=== PATIENT | female | born 1935 | race Caucasian/White ===

== ENCOUNTER → 2023-07-02 09:26 | Outpatient (REF) | payer MEDICARE, OTHER, SELFPAY ==
[2023-07-02 11:55] LABS: % Basophils 0.5 % (0-2); % Immature Granulocytes 0.4 % (0-0.5); % Lymphocytes 12.8 % (20.5-51.1); % Monocytes 8.4 % (1.7-9.3); % Neutrophils 74.9 % (42.2-75.2); Absolute Eosinophils 0.3 10^3/uL (0-0.7); Absolute Lymphocytes 1.1 10^3/uL (1.2-3.4); Absolute Monocytes 0.7 10^3/uL (0.1-0.6); Absolute Neutrophils 6.3 10^3/uL (1.4-6.5); Hematocrit 42.7 % (37.0-47.0); Hemoglobin 14.2 g/dL (12.0-16.0); Mean Corp Hgb Conc. 33.3 g/dL (33.0-37.0); Mean Corpuscular Hgb 29.3 pg (27.0-31.0); Mean Platelet Volume 10.4 fL (7.4-10.4); Nucleated Red Blood Cells % 0 %; Platelet Count 250 10^3/uL (130-400); Red Blood Cell Count 4.85 10^6/uL (4.20-5.40); Red Cell Dist. Width 15.9 % (11.5-14.5); White Blood Cell Count 8.4 10^3/uL (4.8-10.8)
[2023-07-02 12:03] LABS: ALT (SGPT) 16 U/L (0-35); AST (SGOT) 23 U/L (14-36); Alkaline Phosphatase 90 U/L (38-126); Blood Urea Nitrogen 31 mg/dl (7-17); Calcium 9.7 mg/dl (8.4-10.2); Carbon Dioxide 31 mmol/L (22-30); Chloride 97 mmol/L (98-107); Glucose 170 mg/dl (70-99); HDL Cholesterol 55 mg/dl; LDL Cholesterol, Calculated 45 mg/dl; Potassium 4.3 mmol/L (3.5-5.1); Sodium 135 mmol/L (135-145); Total Bilirubin 0.9 mg/dl (0.2-1.3); Total Cholesterol 131 mg/dl (50-199); Total Protein 6.7 g/dl (6.3-8.2); Triglyceride 159 mg/dl (10-149); Very Low Density Lipoprotein 31 mg/dl (0-30); eGFR > 60.00
[2023-07-02 12:32] LABS: Microalbumin, Random Urine 1.4 mg/dl (0.6-1.7); Microalbumin/creatinine Ratio 20.3 mg/g
[2023-07-02 12:47] LABS: TSH Reflex To Free T4 2.03 uIU/ml (0.47-4.68)
[2023-07-02 13:52] LABS: Glycohemoglobin (HgbA1c) 7.4 % (4.0-5.6)
== END ==
LOC: HWLAB 09:26
PROVIDERS: ATTENDING PHYSICIAN Nurse Practitioner Family
DX: I10 Essential (primary) hypertension (principal); E11.9 Type 2 diabetes mellitus without complications; E11.42 Type 2 diabetes mellitus with diabetic polyneuropathy; N18.32 Chronic kidney disease, stage 3b; E78.5 Hyperlipidemia, unspecified
CPT/HCPCS: 36415; 80053; 80061; 82043; 82570; 83036; 84443; 85025

== ENCOUNTER → 2023-07-13 09:43 | Outpatient (REF) | payer MEDICARE, OTHER, SELFPAY | LOC: HWRAD 09:43 | PROVIDERS: ATTENDING PHYSICIAN Nurse Practitioner Family | DX: R91.1 Solitary pulmonary nodule (principal) | CPT/HCPCS: 71260; Q9967 ==

== ENCOUNTER → 2023-11-15 10:20 | Outpatient (REF) | payer MEDICARE, OTHER, SELFPAY | LOC: HWRCS 10:20 | PROVIDERS: ATTENDING PHYSICIAN Internal Medicine Cardiovascular Disease; FAMILY PHYSICIAN Nurse Practitioner Family | DX: I35.0 Nonrheumatic aortic (valve) stenosis (principal) | CPT/HCPCS: 93306 ==

== ENCOUNTER → 2024-01-01 09:03 | Outpatient (REF) | payer MEDICARE, OTHER, SELFPAY ==
[2024-01-01 12:04] LABS: % Basophils 0.8 % (0-2); % Eosinophils 4.9 % (0-6); % Immature Granulocytes 0.5 % (0-0.5); % Lymphocytes 12.4 % (20.5-51.1); % Monocytes 9.4 % (1.7-9.3); Absolute Basophils 0.1 10^3/uL (0-0.2); Absolute Eosinophils 0.4 10^3/uL (0-0.7); Absolute Monocytes 0.8 10^3/uL (0.1-0.6); Absolute Neutrophils 5.7 10^3/uL (1.4-6.5); Hematocrit 42.6 % (37.0-47.0); Mean Corp Hgb Conc. 32.9 g/dL (33.0-37.0); Mean Corpuscular Hgb 27.8 pg (27.0-31.0); Mean Corpuscular Volume 84.5 fL (81.0-99.0); Mean Platelet Volume 10.2 fL (7.4-10.4); Nucleated Red Blood Cells % 0 %; Platelet Count 244 10^3/uL (130-400); Red Blood Cell Count 5.04 10^6/uL (4.20-5.40); Red Cell Dist. Width 15.9 % (11.5-14.5)
[2024-01-01 12:18] LABS: ALT (SGPT) 17 U/L (0-35); AST (SGOT) 22 U/L (14-36); Albumin 4.2 g/dl (3.5-5.0); Alkaline Phosphatase 88 U/L (38-126); Blood Urea Nitrogen 33 mg/dl (7-17); Calcium 9.9 mg/dl (8.4-10.2); Carbon Dioxide 28 mmol/L (22-30); Chloride 97 mmol/L (98-107); Glucose 188 mg/dl (70-99); HDL Cholesterol 56 mg/dl; LDL Cholesterol, Calculated 50 mg/dl; Potassium 4.2 mmol/L (3.5-5.1); Sodium 134 mmol/L (135-145); Total Bilirubin 0.8 mg/dl (0.2-1.3); Total Cholesterol 131 mg/dl (50-199); Total Protein 6.8 g/dl (6.3-8.2); Triglyceride 128 mg/dl (10-149); Very Low Density Lipoprotein 25 mg/dl (0-30); eGFR 54.53
[2024-01-01 12:39] LABS: Glycohemoglobin (HgbA1c) 8.1 % (4.0-5.6)
[2024-01-01 12:41] LABS: TSH Reflex To Free T4 1.63 uIU/ml (0.47-4.68)
[2024-01-01 16:28] LABS: Microalbumin, Random Urine 14.4 mg/dl (0.6-1.7); Microalbumin/creatinine Ratio 190.5 mg/g
== END ==
LOC: HWLAB 09:03
PROVIDERS: ATTENDING PHYSICIAN Nurse Practitioner Family; REFERRING PHYSICIAN Internal Medicine Cardiovascular Disease
DX: I10 Essential (primary) hypertension (principal); E11.9 Type 2 diabetes mellitus without complications; N18.32 Chronic kidney disease, stage 3b
CPT/HCPCS: 36415; 80053; 80061; 82043; 82570; 83036; 84443; 85025

== ENCOUNTER → 2024-01-03 11:48 | Outpatient (REF) | payer MEDICARE, OTHER, SELFPAY | LOC: HWRAD 11:48 | PROVIDERS: ATTENDING PHYSICIAN Nurse Practitioner Family | DX: R06.09 Other forms of dyspnea (principal); R91.8 Other nonspecific abnormal finding of lung field | CPT/HCPCS: 71046 ==

== ENCOUNTER → 2024-01-31 14:41 | Outpatient (REF) | payer MEDICARE, OTHER, SELFPAY | LOC: HWRAD 14:41 | PROVIDERS: ATTENDING PHYSICIAN Nurse Practitioner Family | DX: R91.1 Solitary pulmonary nodule (principal) | CPT/HCPCS: 71260; Q9967 ==

== ENCOUNTER → 2024-09-08 09:34 | Outpatient (REF) | payer MEDICARE, OTHER, SELFPAY ==
[2024-09-08 12:59] LABS: ALT (SGPT) 16 U/L (0-35); AST (SGOT) 20 U/L (14-36); Albumin 4.3 g/dl (3.5-5.0); Alkaline Phosphatase 92 U/L (38-126); Blood Urea Nitrogen 62 mg/dl (7-17); Calcium 9.6 mg/dl (8.4-10.2); Carbon Dioxide 29 mmol/L (22-30); Chloride 94 mmol/L (98-107); Glucose 251 mg/dl (70-99); HDL Cholesterol 44 mg/dl; LDL Cholesterol, Calculated 50 mg/dl; Potassium 4.1 mmol/L (3.5-5.1); Sodium 134 mmol/L (135-145); Total Bilirubin 0.9 mg/dl (0.2-1.3); Total Cholesterol 126 mg/dl (50-199); Total Protein 6.8 g/dl (6.3-8.2); Triglyceride 160 mg/dl (10-149); Very Low Density Lipoprotein 32 mg/dl (0-30); eGFR 36.19
[2024-09-08 13:14] LABS: TSH Reflex To Free T4 1.63 uIU/ml (0.47-4.68)
[2024-09-08 14:00] LABS: Glycohemoglobin (HgbA1c) 11.2 % (4.0-5.6)
== END ==
LOC: HWLAB 09:34
PROVIDERS: ATTENDING PHYSICIAN Internal Medicine Cardiovascular Disease; FAMILY PHYSICIAN Nurse Practitioner Family
DX: I10 Essential (primary) hypertension (principal); E11.9 Type 2 diabetes mellitus without complications; E78.5 Hyperlipidemia, unspecified; I35.0 Nonrheumatic aortic (valve) stenosis
CPT/HCPCS: 36415; 80053; 80061; 83036; 84443

== ENCOUNTER → 2024-09-12 10:03 | Outpatient (REF) | payer MEDICARE, OTHER, SELFPAY ==
[2024-09-12 16:26] LABS: % Basophils 0.5 % (0-2); % Eosinophils 3.2 % (0-6); % Immature Granulocytes 0.4 % (0-0.5); % Lymphocytes 10.4 % (20.5-51.1); % Monocytes 9.4 % (1.7-9.3); % Neutrophils 76.1 % (42.2-75.2); Absolute Basophils 0.1 10^3/uL (0-0.2); Absolute Eosinophils 0.4 10^3/uL (0-0.7); Absolute Lymphocytes 1.2 10^3/uL (1.2-3.4); Absolute Neutrophils 8.4 10^3/uL (1.4-6.5); Hematocrit 43.7 % (37.0-47.0); Hemoglobin 14.4 g/dL (12.0-16.0); Mean Corpuscular Hgb 28.5 pg (27.0-31.0); Mean Corpuscular Volume 86.4 fL (81.0-99.0); Mean Platelet Volume 11.5 fL (7.4-10.4); Nucleated Red Blood Cells % 0 %; Platelet Count 230 10^3/uL (130-400); Red Blood Cell Count 5.06 10^6/uL (4.20-5.40); Red Cell Dist. Width 15.4 % (11.5-14.5)
[2024-09-12 16:28] LABS: Urine Albumin 2+ (Neg - Trace); Urine Bilirubin Negative (Negative); Urine Character Clear (Clear); Urine Color Yellow; Urine Glucose 3+ (Negative); Urine Ketone Negative (Negative); Urine Leukocyte 1+ (Negative); Urine Nitrite Negative (Negative); Urine Occult Blood Negative (Negative); Urine Urobilinogen Negative (Neg - 1+)
[2024-09-12 16:39] LABS: Urine Squamous Cell >30 /LPF (Few)
[2024-09-12 16:40] LABS: Urine Bacteria Moderate (Negative); Urine Red Blood Cell 0-2 /HPF (0-2)
[2024-09-12 17:00] LABS: Microalbumin, Random Urine 5.5 mg/dl (0.6-1.7); Microalbumin/creatinine Ratio 90.9 mg/g
== END ==
LOC: HWRCS 10:03
PROVIDERS: ATTENDING PHYSICIAN Internal Medicine Cardiovascular Disease; FAMILY PHYSICIAN Nurse Practitioner Family
DX: I35.0 Nonrheumatic aortic (valve) stenosis (principal); R41.0 Disorientation, unspecified; R06.09 Other forms of dyspnea; E11.9 Type 2 diabetes mellitus without complications; I10 Essential (primary) hypertension; E78.5 Hyperlipidemia, unspecified
CPT/HCPCS: 36415; 71046; 81003; 81015; 82043; 82570; 85025; 87086; 93306

== ENCOUNTER → 2024-10-09 14:20 | Outpatient (REF) | payer MEDICARE, OTHER, SELFPAY | LOC: HWRAD 14:20 | PROVIDERS: ATTENDING PHYSICIAN Nurse Practitioner Family | DX: R91.1 Solitary pulmonary nodule (principal) | CPT/HCPCS: 71250 ==

== ENCOUNTER 2024-11-27 23:42 | Inpatient (IN) | payer MEDICARE, OTHER, SELFPAY ==
[2024-11-27 20:45] VITALS: BP 124/66
[2024-11-27 21:42] VITALS: BP 131/71
--- NOTE | 2024-11-27 21:50 | ED.GENMED ---
History of Present Illness
General
Chief Complaint: Abnormal Lab Value
Source: patient and family
Time Seen by Provider: 11/27/24 21:25
History of Present Illness
History of Present Illness:
This patient is an 89-year-old female presents emergency department after getting preop labs done in anticipation of a TAVR and was notified that her renal function was abnormal and referred to the emergency department. Patient states she feels
fine and denies any complaints. At baseline, patient has mild dyspnea. She denies new leg swelling, chest pain or pressure, cough, sore throat, abdominal pain, nausea, vomiting, anorexia. Family who are very attentive are at bedside and states
that patient has poor p.o. intake in general
Past History
Past History
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
Social History
Tobacco: Former smoker
Alcohol: Occasional
Drug: None
Personal:
Living: alone
Employment: Retired
Family History
Family History: Diabetes and CAD
Phy Exam
Physical Exam
Physical Exam:
GENERAL: Alert , in no apparent distress
EYE: pupils equal and reactive
NECK: Supple, no significant adenopathy.
ENT: o/p clr, mmm.
CARDIAC: Regular rate and rhythm .
LUNGS: Clear breath sounds bilaterally, no acute respiratory distress, no wheezes/rales/rhonchi
ABDOMEN: Soft, without focal tenderness, no r/g, no cvat
NEUROLOGICAL: Alert and oriented, no focal neuro deficits
SKIN: Warm and dry, skin intact.
MUSCULOSKELETAL: L le mild edema (baseline), well perfused.
PSYCH: Normal and appropriate interaction.
Course
Orders/Labs/Results
Orders:
Orders
11/27/24 21:48
0.9% Sodium Chloride 500 ml [Nss] 500 ml IV BOLUS
US Kidneys and US Bladder [US Renal With Bladder] Urgent
Comment:
Reason For Exam: josé miguel
11/27/24 21:49
Urinalysis Reflex To Culture Urgent
11/27/24 22:16
CR Chest - 2 Views Urgent
Comment:
Reason For Exam: hypoxia
11/27/24 22:46
Admit/Transfer Patient As Directed
Co-Sign Provider:
Level of Care: Inpatient admission
Assign to:: Telemetry
Physician / Group: Jm
Diagnosis: CAMILO
Reason for Telemetry: Arrhythmia
Date to Stop Telemetry: 11/30/24
Time to Stop Telemetry: 11:00
Reason for Hospitalization: IVFs, Nephrology Consult
Expected length of stay greater than two midnights?: Yes
ELOS- Estimated Length of Stay in days: 3
I certify the patient meets the requirements for IP care: Yes
11/27/24 22:47
PRN Pain Medication Management As Directed
May give lesser potent ordered pain med per pt: Yes
preference::
Protocol:: Medication orders for pain may be administered in a
manner that supports deferring to patient preference
when the pt is:
- Requesting an ordered lesser potent pain medication.
Least to most potent pain medications are defined
as: acetaminophen < NSAID < tramadol < opioids
(morphine, oxycodone, hydromorphone).
- Requesting a lesser dose of the same medication IF
ORDERED.
- Requesting a less intrusive route of administration
if both routes are prescribed by the provider (PO <
IV).
11/27/24 22:50
Code Status As Directed
Resuscitation Status: Do not resuscitate
Reached after discussion with pt or family/Healthcare POA: Yes
DNR Bracelet Application ONCE
11/27/24 23:40
NT-proBNP Urgent
11/28/24 00:49
0.9% Sodium Chloride 1000 ml [Nss] 1,000 ml IV 75 mls/hr
Acetaminophen [Tylenol] 650 mg PO Q4HPRN PRN
Dextrose 50%-Water [Dextrose 50% Syringe] 12.5 grams IV [id number] PRN
Glucagon [GlucaGen] 1 mg IM PRN PRN
11/28/24 00:49
Consult Notification Routine
Specialty to Notify: Nephrology
Date consulting provider notified: 11/28/24
Time consulting provider notified: 07:42
Notified:: Provider
Comment: TT
NEPHROLOGY CONSULT Routine
Consulting Provider: Davion Cordova
Was physician already notified: No
Reason for consult: CAMILO on CKD III
Activity As Directed
Activity Level: Out of Bed-Early Mobility
With Assistance
Bedside Glucose Monitoring As Directed
Frequency: AC&HS
Additional Instructions:: Change to q6h if pt on TPN, tube feeding or not eating
Bladder Scan As Directed
Follow Bladder Retention/Intermittent Cath Algorithm?: Yes
PRN if no void in __ hours: 6
Frequency: Per Retention Algorithm
If Bladder Scan Result >: 400
then:: Straight cath
I&O [Intake/ Output] As Directed
Frequency: q12h
Straight Cath As Directed
Frequency: Per Retention Algorithm
Additional Instructions: straight cath as needed per acute urinary retention algorithm for 24 hrs
Additional Instructions: for bladder scan greater than 400 mL
Vital Signs As Directed
Frequency: Per unit guidelines
Weight As Directed
Frequency: Daily
Oxygen Therapy [O2 Therapy] [RESP] Routine
Titrate/Wean O2 to maintain O2 sat greater than (%): 92
Pulse Ox/cont/shift [RESP] Routine
Quantity: 1
Ot Eval And Treat Routine
Pt Eval And Treat Routine
Activity Level: Out of Bed-Early Mobility
11/28/24 06:58
Basic Metabolic Panel IN AM
Complete Blood Count/No Diff IN AM
Glycohemoglobin (HgbA1c) IN AM
11/28/24 07:30
Insulin Aspart Corrective Mod [Novolog Flexpen-Moderate Resistance] See Protocol SC AC
11/28/24 08:00
Apixaban [Eliquis] 2.5 mg PO BID
Ferrous Sulfate [Feosol] 325 mg PO DAILY
Metoprolol Xl [Toprol Xl] 50 mg PO DAILY
Pantoprazole [Protonix] 40 mg PO DAILY
11/28/24 Dinner
2000 calorie (17 carb) Diabetic
At Your Request: Full Participation
Does patient need a safe tray?: No
Diabetic Diet: Sodium, 2 Gram
insulin glargine [Lantus Solostar U-100 Insulin] 12 unit SC DAILY@1500
11/28/24 18:00
Atorvastatin [Lipitor] 80 mg PO QPM
Diltiazem Extended Release [Cardizem Cd] 180 mg PO QPM
Ezetimibe [Zetia] 10 mg PO QPM
11/30/24 11:00
DC Protocol for Telemetry ONCE
Vital Signs
Initial and Last Documented VS:
Initial Vital Signs
Temp Pulse Resp BP Pulse Ox
97.6 F 85 20 124/66 94
11/27/24 20:45 11/27/24 20:45 11/27/24 20:45 11/27/24 20:45 11/27/24 20:45
Last Documented Vital Signs
Temp Pulse Resp BP Pulse Ox
98 F 105 18 153/86 95
11/28/24 07:14 11/28/24 08:25 11/28/24 07:14 11/28/24 08:25 11/28/24 07:14
*Pulse Oximetry
SaO2: 94
Oxygen Mode of Delivery: Room air
Patient hypoxic: yes
*Critical Care Note
Total Time (30-74mins, 75-104mins- exclusive of procedures): Not Applicable
Update Note
Update Note:
Patient presents to the Emergency Department with ____abnormal labs
Number and Complexity of Problems Addressed at the Encounter
� Chronic conditions affecting care:
� Acute Exacerbation and/or Progression of Chronic Illness:
� Differential Diagnosis includes: But not limited to kidney obstruction, dehydration, nephrotoxins, etc. etc.
Amount and/or Complexity of Data to be Reviewed and Analyzed
� I performed an independent evaluation of and my interpretation is:
EKG:
CT:
Xrays:cxr read by me, ?mild failure
Laboratory Studies:cr 2.8 (baseline 1.4) with elevated BUN, ?dehydration related.mild leukocytosis
Other: us read [place]-SEVERE ASYMMETRIC RIGHT RENAL ATROPHY which is likely secondary to SEVERE CHRONIC ISCHEMIA.
2. Moderate number of benign-appearing right renal cysts.
3. No sonographic evidence for hydronephrosis or nephrolithiasis.
� Review of other/old records reveals:
� Clinical information was obtained by an independent historian: Daughters who are at bedside, 1 daughter in particular who sees and cares for her every day, states that she has poor p.o. intake, was recently started on insulin
for increased hemoglobin A1c
� Prescriptions/Medications Considered but not given:
� Further testing considered but not performed:
Risk of Complications and/or Morbidity or Mortality of Patient Management
� Social determinants of health affecting care:
� Discussion with other providers (PCP, Hospitalists, Consultants, etc):
� Escalation of care including admission/observation vs risk of discharge considered:Pt noted to be mildly hypoxic, nc applied, pt comfortable. ?mild failure, she is certainly at risk given hx severe . IVF cancelled. Case
d/w dr Ge for admisison.
ED Attending Note
-
Portions of this chart may have been created with voice recognition software.� Occasional wrong word or��sound alike� substitutions may have occurred due to the inherent limitations of voice recognition software.
Discharge Plan
Departure
Patient Disposition: Admit
Date of Disposition: 11/27/24
Time of Disposition: 23:09
Admit to: Telemetry
Presentation/result/management discussed w/ accepting MD/DO: Hospitalist
Condition: Fair
Discharge Problem:
Acute renal insufficiency
Interventions
Interventions:
*Risk Screen - Suicide Last Done: 11/27/24 20:48
*General Assessment Last Done: 11/28/24 00:21
*Neglect/Abuse Screening Last Done: 11/27/24 20:48
*ED- Fall Risk Assessment Last Done: 11/28/24 00:21
*ED COVID-19 Vaccine History Last Done: 11/28/24 00:23
*Nursing Disposition Last Done: 11/28/24 00:21
Discharge Date and Time
Discharge Date/Time: 11/28/24 00:47
[2024-11-27 22:01] VITALS: BP 133/73
--- NOTE | 2024-11-27 22:11 | HPS.HSE ---
Family Physician
-
Family Physician:
Chief Complaint
-
Abnormal Labs
History of Present Illness
Patient is an 89 y/o female past medical history of permanent atrial fibrillation, CVA, severe aortic stenosis, diabetes mellitus, and hypertension who presents with abnormal labs. Patient underwent a cardiac CT on November 25 in preparation for a
possible TAVR. Today patient had blood work obtained that revealed an acute kidney injury with bump in Cr from 1.4 to 2.8, and she was sent to the emergency department for evaluation. Patient is incontinent but family notes it appears patient has
been making less urine.
Medical History
Past Medical History
Past Medical History: Reports Other
Additional Past Medical History:
Permanent Atrial Fibrillation
Left Temporal CVA
Severe Aortic Stenosis
Diabetes Mellitus, Type II
CKD Stage III
Essential Hypertension
Hyperlipidemia
Cognitive Impairment
Breast Cancer s/p Left Lumpectomy
Sarcoma s/p Resection
Charcot Foot
Past Surgical History: Reports Other
Additional Past Surgical History:
Left Breast Lumpectomy
Left Upper Thigh Sarcoma Resection
Social History
Tobacco: Former Smoker
Living: Alone (Daughter visits daily)
Family History
Family History: Not pertinent
Allergies / Home Medications
Allergies reflects when Allergies were last updated in [facility].
Home Medications with original date entered in [facility]
Allergy/Medication List:
Allergies
Allergy/AdvReac Type Severity Reaction Status Date / Time
Sulfa (Sulfonamide Allergy Mild Hives Verified 11/27/24 20:46
Antibiotics)
Home Medications
losartan 25 mg tablet 25 mg PO DAILY 01/08/18
omeprazole 20 mg capsule,delayed release 20 mg PO DAILY 01/08/18
ascorbic acid (vitamin C) 250 mg tablet (Vitamin C) 250 mg PO DAILY 11/26/24
cholecalciferol (vitamin D3) 10 mcg (400 unit) tablet (Vitamin D3) 10 mcg PO DAILY 11/26/24
cyanocobalamin (vitamin B-12) 500 mcg tablet 500 mcg PO DAILY 11/26/24
diltiazem HCl 180 mg capsule,24 hr,extended release 180 mg PO QPM 11/26/24
ezetimibe 10 mg tablet 10 mg PO QPM 11/26/24
furosemide 20 mg tablet 20 mg PO DAILY 11/26/24
insulin glargine 100 unit/mL (3 mL) subcutaneous pen (Lantus Solostar U-100 Insulin) 16 unit SC DAILY@1500 11/26/24
linagliptin 5 mg tablet (Tradjenta) 5 mg PO DAILY 11/26/24
apixaban 5 mg tablet (Eliquis) 5 mg PO BID 11/27/24
atorvastatin 80 mg tablet 80 mg PO QPM 11/27/24
ferrous sulfate 325 mg (65 mg iron) tablet (FeroSul) 325 mg PO DAILY 11/27/24
metformin 500 mg tablet 500 mg PO BID 11/27/24
metoprolol succinate 50 mg tablet,extended release 24 hr 50 mg PO DAILY 11/27/24
omega-3 fatty acids-fish oil 360 mg-1,200 mg capsule,delayed release 1 cap DAILY 11/27/24
triamterene 37.5 mg-hydrochlorothiazide 25 mg tablet 1 tab PO DAILY 11/27/24
Review of Systems
-
Unable to obtain full review of systems at this time due to: Other (Family notes patient is very forgetful. She will answer questions but family does not think she always answers truthfully)
A 12 point ROS was completed and negative except as noted: Yes
Constitutional: Denies Fever
Respiratory: Denies Cough
Cardiac: Denies Chest Pain
Physical Exam
Vital Signs
Vital Signs
Temp Pulse Resp BP Pulse Ox
97.6 F 85 20 124/66 94
11/27/24 20:45 11/27/24 20:45 11/27/24 20:45 11/27/24 20:45 11/27/24 21:52
Physical Exam
General: Comfortable and Conversant
HEENT: Moist mucous membranes and Oxygen (Nasal Cannula)
Respiratory: Rales (Fine faint rales bilateral bases) and Non Labored Respirations
Cardiac: S1/S2 and Irregular Rhythm; No Tachycardia or Murmur
GI: Soft and Non Tender
Musculoskeletal: No Clubbing, No Cyanosis and Other (Chronic lower extremity edema which family notes seems better than baseline)
Skin: Warm and Dry
Neuro: Awake and Alert
Psych: Calm and Other (Forgetful)
Laboratory Results
-
Laboratory Tests
11/27/24
13:46
WBC 11.6 H
Hgb 14.1
Hct 42.7
Plt Count 250
Sodium 134 L
Potassium 4.7
Chloride 94 L
Carbon Dioxide 24
BUN 75 H
Creatinine 2.8 H
Glucose 122 H
Data Reviewed
-
Lab Data: Labs Reviewed by me
Impression/Plan
-
Acute Kidney Injury on CKD III, possible contrast induced nephropathy
-Consult Nephrology
-Continue IVFs
-Hold metformin, losartan, furosemide and triamterene-hydrochlorothiazide
-Await renal/bladder US report
-Await urinalysis
Permanent Atrial Fibrillation
-Continue Eliquis - Will renal dose
-Continue diltiazem and metoprolol for rate control
Severe Aortic Stenosis
-Patient currently undergoing work-up for possible TAVR
-Diuretics on hold due to CAMILO
-Monitor Daily Weights
Diabetes Mellitus, Type II
-Hold Metformin due to CAMILO
-Hold Tradjenta
-Continue Lantus at decreased dose
-Monitor sugars and continue coverage insulin
Essential Hypertension
-Losartan and triamterene-hydrochlorothiazide on hold due to CAMILO
-Continue diltiazem and metoprolol with hold parameters
Hyperlipidemia
-Continue atorvastatin and ezetimibe
Pulmonary Nodule / Mass
-Daughter notes work-up ongoing as outpatient for possible biopsy with [place] [facility] (Dr. Tellez)
Hx Left Temporal CVA
Hx Breast Cancer s/p Left Lumpectomy
Hx Sarcoma s/p Resection
DVT Proph: Eliquis
Code Status: DNR, confirmed with family at bedside at time of admission
[2024-11-27 23:23] VITALS: BP 130/62
--- NOTE | 2024-11-27 23:34 | W.PN.UPDATE ---
Update Note
Progress Note Update
Patient seen independently.
Please see PA note for full details.
89 y/o woman presents with abnormal labs. She underwent a cardiac CT on November 25 in preparation for a possible TAVR. Today she had blood work that revealed an acute kidney injury with bump in Cr from 1.4 to 2.8, and she was sent to the emergency
department for evaluation. She is incontinent but family notes it appears patient has been making less urine. She was in good spirits during the exam and did not have acute symptoms. Of note she takes metformin and an JENA-i.
Past Medical History
Permanent Atrial Fibrillation
Left Temporal CVA
Severe Aortic Stenosis
Diabetes Mellitus, Type II
CKD Stage III
Essential Hypertension
Hyperlipidemia
Cognitive Impairment
Breast Cancer s/p Left Lumpectomy
Sarcoma s/p Resection
Charcot Foot
Left Breast Lumpectomy
Left Upper Thigh Sarcoma Resection
Physical Exam
General: Comfortable and Conversant
Respiratory: Rales (Fine faint rales bilateral bases) and Non Labored Respirations
Cardiac: S1/S2 and Irregular Rhythm; No Tachycardia or Murmur
GI: Soft and Non Tender
Skin: Warm and Dry
Neuro: Awake and Alert
Psych: Calm and Other (Forgetful)
A/P:
89 woman with increase in creatinine after receiving IV dye.
1. Acute Kidney Injury on CKD III, possible contrast induced nephropathy
-Consult Nephrology
-Continue IVFs (gentle rate overnight)
-Hold metformin, losartan, furosemide and triamterene-hydrochlorothiazide
-Await renal/bladder US report
-Await urinalysis
2. Permanent Atrial Fibrillation
-Continue Eliquis
-Continue diltiazem and metoprolol
Please see PA note for details on
3. Severe Aortic Stenosis
4. Diabetes Mellitus, Type II
5. Essential Hypertension
6. Hyperlipidemia
7. Pulmonary Nodule / Mass
DVT Proph: Eliquis
Code Status: DNR, confirmed with family at bedside at time of admission
[2024-11-28] VITALS (10 sets, daily range): BP systolic 124–153; BP diastolic 56–86; PULSE 104–113; O2SAT 95; BMI 28.7
--- NOTE | 2024-11-28 01:00 | PTCARENOTE ---
Patient arrived from the ED via stretcher. Patient AAOx3, VSS. Arrived on 2L NC at 97%. Pulled over onto the bed by staff. No complaints of pain. Educated on medications, oriented to the room. Call lawrence is within reach.
[2024-11-28 01:02] LABS: Glucose - Point of Care 131 mg/dl (70-99)
[2024-11-28] MEDS: NSS 1000 IV (01:25)
[2024-11-28 07:20] LABS: Glucose - Point of Care 126 mg/dl (70-99)
[2024-11-28 07:54] LABS: Hematocrit 38.8 % (37.0-47.0); Hemoglobin 13.3 g/dL (12.0-16.0); Mean Corp Hgb Conc. 34.3 g/dL (33.0-37.0); Mean Corpuscular Volume 84.0 fL (81.0-99.0); Platelet Count 230 10^3/uL (130-400); Red Cell Dist. Width 15.9 % (11.5-14.5)
[2024-11-28] MEDS: NOVOLOG FLEXPEN-MODERATE RESISTANCE SC (08:12)
[2024-11-28 08:24] LABS: Blood Urea Nitrogen 88 mg/dl (7-17); Calcium 8.9 mg/dl (8.4-10.2); Carbon Dioxide 25 mmol/L (22-30); Chloride 98 mmol/L (98-107); Estimated Creatinine Clearance 10 ml/min; Glucose 110 mg/dl (70-99); Potassium 4.7 mmol/L (3.5-5.1); Sodium 132 mmol/L (135-145); eGFR 11.27
[2024-11-28] MEDS: FEOSOL 325 MG PO (08:25)
[2024-11-28] MEDS: TOPROL XL 50 MG PO (08:25)
[2024-11-28] MEDS: ELIQUIS 2.5 MG PO ×2 (08:25→20:19)
[2024-11-28] MEDS: PROTONIX 40 MG PO (08:25)
[2024-11-28 08:47] LABS: Glycohemoglobin (HgbA1c) 8.1 % (4.0-5.6)
--- NOTE | 2024-11-28 09:40 | W.PN.HOSP.TC ---
Today's Communication/Plan
-
see plan
Assessment / Plan
Assessment / Plan
Gen: NAD, Awake and alert
Eyes: EOMI, PERRLA, no scleral icterus.
Neck: supple.
CV: tachy, irreg/irreg, +S1/S2, 2/6 systolic murmur
Resp: CTAB anteriorly, no rales, wheezes, or rhonchi.
Abd: +BS, soft, NT, ND
Skin: No rashes. No LE edema.
Neuro: CN 2-12 intact, non-focal.
Psych: Normal mood and affect.
Renal U/S:
1. SEVERE ASYMMETRIC RIGHT RENAL ATROPHY which is likely secondary to SEVERE CHRONIC ISCHEMIA.
2. Moderate number of benign-appearing right renal cysts.
3. No sonographic evidence for hydronephrosis or nephrolithiasis.
Acute Kidney Injury on CKD3:
-possible RHEA
-Consult Nephrology
-Cont IVFs
-Hold metformin, losartan, furosemide and triamterene-hydrochlorothiazide
-renal U/S above
-U/A with microalbuminuria
Permanent Atrial Fibrillation
-Continue Eliquis (renal dose)
-Continue diltiazem/metoprolol
Severe Aortic Stenosis:
-Patient currently undergoing work-up for possible TAVR
-Diuretics on hold due to CAMILO
-Monitor Daily Weights
DM2:
-Hold Metformin due to CAMILO
-Hold Tradjenta
-Continue Lantus at decreased dose
-Monitor sugars and continue coverage insulin
Essential Hypertension
-Losartan and triamterene-hydrochlorothiazide on hold due to CAMILO
-Continue diltiazem and metoprolol with hold parameters
Hyperlipidemia
-Continue atorvastatin and ezetimibe
Pulmonary Nodule / Mass
-Daughter notes work-up ongoing as outpatient for possible biopsy with [place] [facility] (Dr. Tellez)
Other problems:
Hx Left Temporal CVA
Hx Breast Cancer s/p Left Lumpectomy
Hx Sarcoma s/p Resection
DNR/Eliquis
Total time spent on today's encounter was 50 minutes which included time spent in counseling the patient/family regarding diagnosis and treatment plan as listed above, goals of care, and symptom management. Case was discussed with nursing staff,
specialists, and care coordinators/case management. All labs and imaging personally reviewed by me. Remainder the time spent in detailed review of previous records, lab data, imaging, and other medical provider documentation.
Anticipated Discharge: > 48 hours
Subjective/Interval History
-
Date of Service: November 28, 2024
No new complaints. Denies CP/SOB.
Objective Data
-
Labs:
Laboratory Results
11/28/24
06:58
WBC 10.7
Hgb 13.3
Hct 38.8
Plt Count 230
Sodium 132 L
Potassium 4.7
Chloride 98
Carbon Dioxide 25
BUN 88 H
Creatinine 3.7 H
Glucose 110 H
Calcium 8.9
Vital Signs:
Vital Signs
Temp Pulse Resp BP Pulse Ox
98 F 105 18 153/86 95
11/28/24 07:14 11/28/24 08:25 11/28/24 07:14 11/28/24 08:25 11/28/24 07:14
I&O
11/27/24 11/28/24 11/29/24
06:59 06:59 06:59
Intake Total 480 / 480 240 / 240
Balance 480 / 480 240 / 240
[2024-11-28 12:16] LABS: Glucose - Point of Care 164 mg/dl (70-99)
[2024-11-28] MEDS: NOVOLOG FLEXPEN-MODERATE RESISTANCE 1 UNITS SC (12:34)
--- NOTE | 2024-11-28 14:05 | W.CON.NEPH ---
Addendum entered and electronically signed by Lissa Washington MD 11/28/24 16:11:
spoke with family son at bedside
he reports according to the will no heroic measures and that includes no dialysis either
will monitor renal function with supportive care and if no improvement may chose comfort care
Original Note:
Consultation
-
Date/Time Consultation Requested: 11/28/24 0049
Date/Time Consultation Performed: 11/28/24 1430
Requesting Provider: [place] Ramirez
Performing Provider: Lissa Avila
Reason for Consultation: CAMILO
Medical History
-
Chief Complaint: abnormal labs
History of Present Illness:
89 y/o female past medical history of permanent atrial fibrillation on rate control with diltiazem, metoprolol, AC with ELiquis, CVA, severe aortic stenosis. CHF pEF on lasix, insulin dependant diabetes mellitus on linagliptin and metformin too, and
hypertension on losartan, HCTZ, triamterene, HLD on statin who presents with abnormal labs. Patient underwent a cardiac CT on November 25 in preparation for a possible TAVR. Today patient had blood work obtained that revealed an acute kidney injury
with bump in Cr from 1.4 to 2.8, and she was sent to the emergency department for evaluation on 11/27. Patient is incontinent but family notes it appears patient has been making less urine. Today her cr increased even to 3.7 hence nephrology
consulted. She offers no cp. Dizzy when standing chronically. SOB is chronic on mod exertion and uses walker for ambulation. No n/v. No abd pain.
Past Medical History
1. Aortic stenosis, severe, by echo 09/12/2024.
2. Permanent atrial fibrillation.
3. HFpEF, 70-75%, echo 09/12/2024.
4. Hypertension.
5. Hyperlipidemia.
6. Obesity, BMI 29.2.
7. Type 2 IDDM, uncontrolled. Hemoglobin A1c 11.4.
8. CVA, 2018, left hemispheric.
9. Deconditioning, ambulatory dysfunction with balance and gait disturbance.
10. Cognitive deficits.
11. Hiatal hernia/GERD.
12. Interstitial fibrosis.
13. Left breast cancer, lumpectomy, radiation, 2003.
14. Sarcoma left lower extremity, resected, chemo, and radiation.
15. Pulmonary mass, biopsy pending.
16. Obstructive sleep apnea, noncompliant with device.
17. History of tobacco abuse.
18. Osteopenia.
19. CKD 3.
Cognitive Impairment
Breast Cancer s/p Left Lumpectomy
Sarcoma s/p Resection
Charcot Foot
Past Surgical History: Other (Left Breast Lumpectomy Left Upper Thigh Sarcoma Resection)
Social History
Tobacco: Former Smoker (quit at age of 49)
Alcohol: None
Living: Alone
Family History
Family History: Not Pertinent
Allergies / Home Medications
Allergy/AdvReac Type Severity Reaction Status Date / Time
Sulfa (Sulfonamide Allergy Mild Hives Verified 11/27/24 20:46
Antibiotics)
�Medication �Instructions �Recorded �Confirmed �Type
losartan 25 mg tablet 25 mg PO DAILY 01/08/18 11/27/24 History
omeprazole 20 mg capsule,delayed 20 mg PO DAILY 01/08/18 11/27/24 History
release
ascorbic acid (vitamin C) 250 mg 250 mg PO DAILY 11/26/24 11/27/24 History
tablet (Vitamin C)
cholecalciferol (vitamin D3) 10 10 mcg PO DAILY 11/26/24 11/27/24 History
mcg (400 unit) tablet (Vitamin D3)
cyanocobalamin (vitamin B-12) 500 500 mcg PO DAILY 11/26/24 11/27/24 History
mcg tablet
diltiazem HCl 180 mg capsule,24 180 mg PO QPM 11/26/24 11/27/24 History
hr,extended release
ezetimibe 10 mg tablet 10 mg PO QPM 11/26/24 11/27/24 History
furosemide 20 mg tablet 20 mg PO DAILY 11/26/24 11/27/24 History
insulin glargine 100 unit/mL (3 16 unit SC DAILY@1500 11/26/24 11/27/24 History
mL) subcutaneous pen (Lantus
Solostar U-100 Insulin)
linagliptin 5 mg tablet (Tradjenta) 5 mg PO DAILY 11/26/24 11/27/24 History
apixaban 5 mg tablet (Eliquis) 5 mg PO BID 11/27/24 11/27/24 History
atorvastatin 80 mg tablet 80 mg PO QPM 11/27/24 11/27/24 History
ferrous sulfate 325 mg (65 mg 325 mg PO DAILY 11/27/24 11/27/24 History
iron) tablet (FeroSul)
metformin 500 mg tablet 500 mg PO BID 11/27/24 11/27/24 History
metoprolol succinate 50 mg 50 mg PO DAILY 11/27/24 11/27/24 History
tablet,extended release 24 hr
omega-3 fatty acids-fish oil 360 1 cap DAILY 11/27/24 11/27/24 History
mg-1,200 mg capsule,delayed release
triamterene 37.5 1 tab PO DAILY 11/27/24 11/27/24 History
mg-hydrochlorothiazide 25 mg tablet
Review of Systems
-
All other systems: Negative unless noted
Physical Exam
Vital Signs
Vital Signs
Temp Pulse Resp BP Pulse Ox
98.2 F 101 16 139/66 94
11/28/24 11:11 11/28/24 11:11 11/28/24 11:11 11/28/24 11:11 11/28/24 13:44
Lab Results
WBC 10.7 10^3/uL (4.8-10.8) 11/28/24 06:58
RBC 4.62 10^6/uL (4.20-5.40) 11/28/24 06:58
Hgb 13.3 g/dL (12.0-16.0) 11/28/24 06:58
Hct 38.8 % (37.0-47.0) 11/28/24 06:58
Plt Count 230 10^3/uL (130-400) 11/28/24 06:58
Sodium 132 mmol/L (135-145) L 11/28/24 06:58
Potassium 4.7 mmol/L (3.5-5.1) 11/28/24 06:58
Chloride 98 mmol/L (98-107) 11/28/24 06:58
Carbon Dioxide 25 mmol/L (22-30) 11/28/24 06:58
BUN 88 mg/dl (7-17) H 11/28/24 06:58
Creatinine 3.7 mg/dL (0.6-1.0) H 11/28/24 06:58
eGFR 11.27 11/28/24 06:58
Glucose 110 mg/dl (70-99) H 11/28/24 06:58
Calcium 8.9 mg/dl (8.4-10.2) 11/28/24 06:58
Gse-Q-Ntiikjalttq Pept 7930 pg/ml 11/27/24 23:40
Physical Exam
General: Awake, Alert, Oriented, AOx3, No Distress and Nontoxic
HEENT: EOMI, Anicteric, Conjunctivae Clear, Ear/Nose Intact and No JVD
Respiratory: Crackels, Normal Excursion and Nonlabored Respirations
Cardiac: S1/S2, Regular Rate/Rhythm and Murmur
Breast: Deferred by me
Abdomen: Soft, Nontender and Nondistended
Musculoskeletal: No Cyanosis and Edema (1+)
Skin: No Rash
Neuro: Nonfocal/Grossly Intact
Psych: Mood/afflect pleasant, Insight/judgement good and Appropriate
Data Reviewed
-
Radiology: Report Reviewed by me and Discussed with Patient
Labs: Labs Reviewed by me, Discussed with Nurse and Discussed with Patient
Assessment/Plan
-
IMP:
Acute Kidney Injury on CKD3-cr was 1.4 in August 2024
Permanent Atrial Fibrillation
Severe Aortic Stenosis- currently undergoing work-up for possible TAVR
DM2
Essential Hypertension
Hyperlipidemia
Hyponatremia
Pulmonary Nodule / Mass
Hx Left Temporal CVA
Hx Breast Cancer s/p Left Lumpectomy
Hx Sarcoma s/p Resection
PLan:
A/w abnormal labs
CAMILO-possible RHEA, contrast exposure on 11/25
known atrophic right kidney hence has solitary functioning left kidney
would check UA, U fena , UOP decreased
also check renal duplex mainly of left kidney
monitor UOP as much as possible, bladder scan only 28cc
no emergent shmuel of HD
CXR Noted pulm edema and high BNP, on 1-2lit of O2 -hold IVF
could try lasix if any symp, avoid nephrotoxins
hold other meds-ARB, metformin, HCTZ and Triamterene
noted cards wants to do [facility] in near future-would wait till renal function stabilizes
Bp stable with out hypotension
left VM on son [employer] phone
d/w pt in detail
d/w nursing
[2024-11-28 16:03] LABS: Glucose - Point of Care 250 mg/dl (70-99)
[2024-11-28] MEDS: LANTUS 0.12 UNITS SC (16:03)
[2024-11-28] MEDS: NOVOLOG FLEXPEN-MODERATE RESISTANCE 5 UNITS SC (16:03)
--- NOTE | 2024-11-28 16:40 | CM ---
Spoke with patient who stated that she lives alone in a single home. 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 She has two daughters and
a son, one daughter lives close and is supportive (Rona). She can drive patient to her appointments and does all of the shopping. She stated that she has a cane and a walker. She has had VN in the past and stated that she went to a SNF in the past.
Patient has a prescription plan and uses, [facility].
Patient's PCP is, Syed Burger.
Spoke with RN who stated that call should be made to patient's daughter.
Placed a call to patient's daughter, Rona, who stated that patient has short term memory loss and pending the tests, she will determine what the plan will be moving forward.
Plan: Case management will continue to follow and assist with discharge planning. Will watch for needs.
[2024-11-28] MEDS: ZETIA 10 MG PO (17:29)
[2024-11-28] MEDS: CARDIZEM CD 180 MG PO (17:29)
[2024-11-28] MEDS: LIPITOR 80 MG PO (17:29)
[2024-11-28 21:25] LABS: Glucose - Point of Care 226 mg/dl (70-99)
[2024-11-29] VITALS (7 sets, daily range): BP systolic 125–154; BP diastolic 70–85; BMI 29.2
[2024-11-29 06:02] LABS: Glucose - Point of Care 193 mg/dl (70-99)
[2024-11-29] MEDS: LASIX 20 MG IV (06:21)
--- NOTE | 2024-11-29 06:27 | W.PN.UPDATE ---
Update Note
Progress Note Update
Per nursing Pt reports SOB and anxiety with lungs course and wheezing. VS �137/81, HR 103, RR 30, 98% 3L NC. Noted patient's diuretic held due to kidney functions.
Rx 20mg IV lasix, 0.5mg PO Ativan
[2024-11-29] MEDS: ATIVAN 0.5 MG PO (06:28)
--- NOTE | 2024-11-29 07:10 | PTCARENOTE ---
Pt. tachypneic and anxious. Provider notified, 3 lb weight gain from previous day and auditory wheezing, IV lasix and PO ativan administered.
[2024-11-29 07:15] LABS: Glucose - Point of Care 209 mg/dl (70-99)
[2024-11-29 08:11] LABS: Blood Urea Nitrogen 98 mg/dl (7-17); Calcium 9.0 mg/dl (8.4-10.2); Carbon Dioxide 22 mmol/L (22-30); Chloride 96 mmol/L (98-107); Estimated Creatinine Clearance 6 ml/min; Glucose 185 mg/dl (70-99); Potassium 5.0 mmol/L (3.5-5.1); Sodium 132 mmol/L (135-145); eGFR 6.57
[2024-11-29] MEDS: NOVOLOG FLEXPEN-MODERATE RESISTANCE 3 UNITS SC (08:26)
[2024-11-29] MEDS: PROTONIX 40 MG PO (08:27)
[2024-11-29] MEDS: FEOSOL 325 MG PO (08:27)
[2024-11-29] MEDS: ELIQUIS 2.5 MG PO (08:27)
[2024-11-29] MEDS: TOPROL XL 50 MG PO (08:27)
--- NOTE | 2024-11-29 09:21 | W.PN.HOSP.TC ---
Today's Communication/Plan
-
see plan
Assessment / Plan
Assessment / Plan
Gen: Appears moderately short of breath, using accessory muscles, Awake and alert
Eyes: EOMI, PERRLA, no scleral icterus.
Neck: supple.
CV: tachy, irreg/irreg, +S1/S2, 2/6 systolic murmur
Resp: rales in the bases, L>R
Abd: +BS, soft, NT, ND
Skin: No rashes. No LE edema.
Neuro: CN 2-12 intact, non-focal.
Psych: Normal mood and affect.
Renal U/S:
1. SEVERE ASYMMETRIC RIGHT RENAL ATROPHY which is likely secondary to SEVERE CHRONIC ISCHEMIA.
2. Moderate number of benign-appearing right renal cysts.
3. No sonographic evidence for hydronephrosis or nephrolithiasis.
CXR 11/27/24:
1. Mild to moderate acute interstitial and alveolar cardiogenic pulmonary edema.
2. Mild cardiomegaly.
3. Severe calcific atherosclerotic plaque in the thoracic aorta and coronary arteries.
4. 2.4 cm LEFT UPPER LOBE LUNG CANCER.
CXR 11/29/24AM: Cardiomegaly with increased pulmonary vascularity again seen suggesting acute interstitial alveolar cardiogenic pulmonary edema.
Acute Kidney Injury on CKD3:
-possible RHEA
-renal following
-s/p IVFs
-Holding home metformin, losartan, furosemide and triamterene-hydrochlorothiazide
-renal U/S above
-U/A with microalbuminuria
-as per Dr. Washington, family does not want HD
Acute hypoxic respiratory failure due to acute HFpEF:
-due to CAMILO
-using accessory muscles of breathing
-total of 80mg IV lasix given this AM
-CXR above with cardiogenic pulmonary edema
Permanent Atrial Fibrillation
-Continue Eliquis (renal dose)
-Continue diltiazem/metoprolol
Severe Aortic Stenosis:
-Patient currently undergoing work-up for possible TAVR
-Diuretics on hold due to CAMILO
-Monitor Daily Weights
DM2:
-Hold Metformin due to CAMILO
-Hold Tradjenta
-Continue Lantus at decreased dose
-Monitor sugars and continue coverage insulin
Essential Hypertension
-Losartan and triamterene-hydrochlorothiazide on hold due to CAMILO
-Continue diltiazem and metoprolol with hold parameters
Hyperlipidemia
-Continue atorvastatin and ezetimibe
Pulmonary Nodule / Mass
-Daughter notes work-up ongoing as outpatient for possible biopsy with [facility] (Dr. Tellez)
-CXR read a 2.4cm ABAD lung CA
Other problems:
Hx Left Temporal CVA
Hx Breast Cancer s/p Left Lumpectomy
Hx Sarcoma s/p Resection
DNR/Eliquis
Total time spent on today's encounter was 52 minutes which included time spent in counseling the patient/family regarding diagnosis and treatment plan as listed above, goals of care, and symptom management. Case was discussed with nursing staff,
specialists, and care coordinators/case management. All labs and imaging personally reviewed by me. Remainder the time spent in detailed review of previous records, lab data, imaging, and other medical provider documentation.
Anticipated Discharge: 24 - 48 hours
Subjective/Interval History
-
Date of Service: November 29, 2024
Patient complains of shortness of breath.
Objective Data
-
Labs:
Laboratory Results
11/29/24
07:08
Sodium 132 L
Potassium 5.0
Chloride 96 L
Carbon Dioxide 22
BUN 98 H
Creatinine 5.8 H*
Glucose 185 H
Calcium 9.0
Vital Signs:
Vital Signs
Temp Pulse Resp BP Pulse Ox
97.7 F 97 32 129/73 95
07/12/25 07:15 11/29/24 08:27 11/29/24 07:15 11/29/24 08:27 11/29/24 07:15
I&O
11/28/24 11/29/24 11/30/24
06:59 06:59 06:59
Intake Total 480 / 480 720 / 720
Balance 480 / 480 720 / 720
--- NOTE | 2024-11-29 09:36 | W.PN.NEPH.PH ---
Today's Communication / Plan
-
lasix again
await for family discussion
Assessment/Plan
-
IMP:
Acute Kidney Injury on CKD3-cr was 1.4 in August 2024
Permanent Atrial Fibrillation
Severe Aortic Stenosis- currently undergoing work-up for possible TAVR
DM2
Essential Hypertension
Hyperlipidemia
Hyponatremia
Pulmonary Nodule / Mass
Hx Left Temporal CVA
Hx Breast Cancer s/p Left Lumpectomy
Hx Sarcoma s/p Resection
PLan:
A/w abnormal labs
CAMILO-possible RHEA, contrast exposure on 11/25
known atrophic right kidney hence has solitary functioning left kidney
would check UA, U fena , UOP decreased -sample could not be obtained
also check renal duplex mainly of left kidney
monitor UOP as much as possible, bladder scan only 28cc
worsening resp status today , no sig response to low dose lasix
redose lasix 60mg now
from previous discussion with family (son) no dialysis or heroic measures
likely agreeable to comfort care-called son on phone and left VM
Bps table hold other meds-ARB, metformin, HCTZ and Triamterene
d/w pt in detail
d/w primary
-
-
Date of Service: November 29, 2024
CC / HPI / ROS
-
Chief Complaint:
CAMILO
History of Present Illness:
cr up at 5.8, minimal UOP incontinenet , BUN 98
Bps table, sob early this am no response to 20mg of lasix
no fever
on 3lit O2
Review of Systems:
sob at rest
no cp
Labs
-
Labs:
WBC 10.7 10^3/uL (4.8-10.8) 11/28/24 06:58
RBC 4.62 10^6/uL (4.20-5.40) 11/28/24 06:58
Hgb 13.3 g/dL (12.0-16.0) 11/28/24 06:58
Hct 38.8 % (37.0-47.0) 11/28/24 06:58
Plt Count 230 10^3/uL (130-400) 11/28/24 06:58
Sodium 132 mmol/L (135-145) L 11/29/24 07:08
Potassium 5.0 mmol/L (3.5-5.1) 11/29/24 07:08
Chloride 96 mmol/L (98-107) L 11/29/24 07:08
Carbon Dioxide 22 mmol/L (22-30) 11/29/24 07:08
BUN 98 mg/dl (7-17) H 11/29/24 07:08
Creatinine 5.8 mg/dL (0.6-1.0) H* 11/29/24 07:08
eGFR 6.57 11/29/24 07:08
Glucose 185 mg/dl (70-99) H 11/29/24 07:08
Calcium 9.0 mg/dl (8.4-10.2) 11/29/24 07:08
Diz-Y-Fukvycnqorq Pept 7930 pg/ml 11/27/24 23:40
Physical Exam
-
Vital Signs:
Vital Signs
Temp Pulse Resp BP Pulse Ox
97.7 F 97 32 129/73 95
11/29/24 07:15 11/29/24 08:27 11/29/24 07:15 11/29/24 08:27 11/29/24 07:15
Cardiovascular:: Regular rate and rhythm
Respiratory:: Bilateral: Coarse and Bilateral: Rhonchi
Lung Excursion:: Abnormal
Abdomen:: Nontender and Soft
Extremity Edema:: +1: Bilateral:
Berry Catheter: No
[2024-11-29] MEDS: LASIX 60 MG IV (09:54)
[2024-11-29 11:58] LABS: Glucose - Point of Care 235 mg/dl (70-99)
[2024-11-29] MEDS: MORPHINE SULFATE 2 MG IV ×5 (12:30→22:25)
--- NOTE | 2024-11-29 12:31 | W.PN.UPDATE ---
Update Note
Progress Note Update
met son at bedside
pt has not response to high dose lasix
remains sob
family want to transition to comfort care
morphine ordered by primary
d/w nursing and primary
will s/o, call with ?s
cancel labs and US
--- NOTE | 2024-11-29 12:47 | W.PN.UPDATE ---
Addendum entered and electronically signed by Ger Stroud MD 11/29/24 13:01:
hospice c/s placed
Original Note:
Update Note
Progress Note Update
Nephrology met with the patient's family. I also met with the patient's 2 daughters at bedside. They would like the patient transitioned to comfort care at this time due to the patient's acute decompensated heart failure with preserved ejection
fraction and acute kidney injury in the setting of not wanting hemodialysis. The patient will be transition to comfort care. Will attempt to move to a private room.
[2024-11-29] MEDS: NOVOLOG FLEXPEN-MODERATE RESISTANCE SC (12:55)
--- NOTE | 2024-11-29 13:20 | CM ---
Addendum entered by Honey Mcmanus RN 11/29/24 13:49:
Message from [facility]: We are going to reevaluate tomorrow to see if patient meets GIP criteria. I will touch base with the daughters to offer our support.
Original Note:
Patient with Dx CAMILO, Acute hypoxic respiratory failure due to acute HF. O2 3L. IV MS ordered prn. Comfort care ordered.
CM Consult: Hospice
Spoke with patient's daughter Evita, who was at the bedside with daughter Rona;
Evita is aware that patient will be receiving comfort care.
She is willing to speak with the hospice nurse.
Offered grounds manager and daughter declined.
Referral to [facility].
Plan comfort care.
--- NOTE | 2024-11-29 14:03 | TRANSFER ---
pt transferred to for comfort care. pt in room 2123. report given to TONE Teixeira. family at the bedside updated.
--- NOTE | 2024-11-29 14:27 | HOSPNOTE ---
Addendum entered by Johnna Gerber RN 11/29/24 16:37:
Was able to make contact with Evita - she is aware of the plan to reevaluate on 11/30 and asked that her sister Rona be followed for bereavement. Will update human resources benefits coordinator
Original Note:
Received referral - TT with Dr Stroud - patient placed on comfort care - will evaluate on 11/30 to see if appropriate for GIP level of care. CM notified. Called to the room to offer support to the two daughters Evita and Rona, but there was no answer.
Left a voice mail for Rona with contact information. Will follow-up tomorrow
[2024-11-29] MEDS: FLUSH (NSS) 2 FLUSH IV ×3 (16:50→22:26)
[2024-11-30] MEDS: FLUSH (NSS) 2 FLUSH IV ×4 (01:57→09:19)
[2024-11-30] MEDS: MORPHINE SULFATE 2 MG IV ×5 (01:58→09:18)
--- NOTE | 2024-11-30 07:10 | W.PN.HOSP.TC ---
Today's Communication/Plan
-
comfort care
Assessment / Plan
Assessment / Plan
Gen: NAD, NCAT
CV: remains tachy, irreg/irreg, +S1/S2, 2/6 systolic murmur
Resp: CTAB anteriorly
Abd: +BS, soft, NT, ND
Skin: No rashes. No LE edema.
Neuro: CN 2-12 intact, non-focal.
Acute Kidney Injury on CKD3a, Acute hypoxic respiratory failure due to acute HFpEF,
-now transitioned to comfort care
-has been IV Morphine PRN. As per discussion with RN this AM, will transition to moprhine gtt.
-Glycopyrrolate, Ativan, Zofran, Tylenol PRN
Four family members updated at bedside.
From 11/29/24:
Renal U/S:
1. SEVERE ASYMMETRIC RIGHT RENAL ATROPHY which is likely secondary to SEVERE CHRONIC ISCHEMIA.
2. Moderate number of benign-appearing right renal cysts.
3. No sonographic evidence for hydronephrosis or nephrolithiasis.
CXR 11/27/24:
1. Mild to moderate acute interstitial and alveolar cardiogenic pulmonary edema.
2. Mild cardiomegaly.
3. Severe calcific atherosclerotic plaque in the thoracic aorta and coronary arteries.
4. 2.4 cm LEFT UPPER LOBE LUNG CANCER.
CXR 11/29/24AM: Cardiomegaly with increased pulmonary vascularity again seen suggesting acute interstitial alveolar cardiogenic pulmonary edema.
Acute Kidney Injury on CKD3a:
-possible RHEA
-renal following
-s/p IVFs
-Holding home metformin, losartan, furosemide and triamterene-hydrochlorothiazide
-renal U/S above
-U/A with microalbuminuria
-as per Dr. Washington, family does not want HD
Acute hypoxic respiratory failure due to acute HFpEF:
-due to CAMILO
-using accessory muscles of breathing
-total of 80mg IV lasix given this AM
-CXR above with cardiogenic pulmonary edema
Permanent Atrial Fibrillation
-Continue Eliquis (renal dose)
-Continue diltiazem/metoprolol
Severe Aortic Stenosis:
-Patient currently undergoing work-up for possible TAVR
-Diuretics on hold due to CAMILO
-Monitor Daily Weights
DM2:
-Hold Metformin due to CAMILO
-Hold Tradjenta
-Continue Lantus at decreased dose
-Monitor sugars and continue coverage insulin
Essential Hypertension
-Losartan and triamterene-hydrochlorothiazide on hold due to CAMILO
-Continue diltiazem and metoprolol with hold parameters
Hyperlipidemia
-Continue atorvastatin and ezetimibe
Pulmonary Nodule / Mass
-Daughter notes work-up ongoing as outpatient for possible biopsy with [facility] (Dr. Tellez)
-CXR read a 2.4cm ABAD lung CA
Other problems:
Hx Left Temporal CVA
Hx Breast Cancer s/p Left Lumpectomy
Hx Sarcoma s/p Resection
Anticipated Discharge: Within 24 hours
Subjective/Interval History
-
Date of Service: November 30, 2024
Pt opens eyes during physical exam.
Objective Data
-
Labs:
Laboratory Results
11/30/24
06:20
Sodium Pending
Potassium Pending
Chloride Pending
Carbon Dioxide Pending
BUN Pending
Creatinine Pending
Glucose Pending
Calcium Pending
Vital Signs:
Vital Signs
Temp Pulse Resp BP Pulse Ox
99.8 F 91 20 125/70 99
11/29/24 19:17 11/29/24 19:17 11/29/24 19:17 11/29/24 19:17 11/29/24 19:17
I&O
11/29/24 11/30/24 12/01/24
06:59 06:59 06:59
Intake Total 720 / 720
Balance 720 / 720
[2024-11-30 07:19] LABS: Blood Urea Nitrogen 107 mg/dl (7-17); Calcium 8.7 mg/dl (8.4-10.2); Carbon Dioxide 21 mmol/L (22-30); Chloride 97 mmol/L (98-107); Estimated Creatinine Clearance 5 ml/min; Glucose 176 mg/dl (70-99); Potassium 5.5 mmol/L (3.5-5.1); Sodium 135 mmol/L (135-145); eGFR 5.16
[2024-11-30 07:48] VITALS: BP 145/79
[2024-11-30] MEDS: MORPHINE 100 IV (09:48)
--- NOTE | 2024-11-30 10:55 | PTCARENOTE ---
Morphine gtt started per protocol for end of life dyspnea and pain, patient with labored breathing, dyspnea at rest and on exertion, drowsy but able to wake and communicate needs appropriately. Bed bath provided, B/L heel and sacrum foams placed,
morphine gtt initiated at step 2 per order with Lluvia RN, infusing through R FA IV. Family at bedside updated on plan of care.
--- NOTE | 2024-11-30 10:58 | HOSPNOTE ---
Hospice will be admitting with Acute Hypoxic Respiratory Failure and Kidney Failure. Managing pain and dyspnea that is unable to be managed in an outpatient setting. Discussed the case with the Hospice [employer] regional driver Mitra Mckay
--- NOTE | 2024-11-30 11:05 | W.DCSUMMARY ---
Addendum entered and electronically signed by Ger Stroud MD 11/30/24 16:18:
Consultants: Nephrology
Original Note:
Discharge Summary
Discharge Data
Date of Admission: 11/27/24
Date of Discharge: 11/30/24
-
Pending Results: No
Hospital Course
Primary diagnoses:
Acute Kidney Injury on CKD3a
Acute hypoxic respiratory failure due to acute HFpEF
Secondary diagnoses:
Permanent Atrial Fibrillation
Severe Aortic Stenosis
Type 2 diabetes mellitus
Essential Hypertension
Hyperlipidemia
Pulmonary Nodule / Mass
Other problems:
Hx Left Temporal CVA
Hx Breast Cancer s/p Left Lumpectomy
Hx Sarcoma s/p Resection
Consultants:
Imaging:
Renal U/S:
1. SEVERE ASYMMETRIC RIGHT RENAL ATROPHY which is likely secondary to SEVERE CHRONIC ISCHEMIA.
2. Moderate number of benign-appearing right renal cysts.
3. No sonographic evidence for hydronephrosis or nephrolithiasis.
CXR 11/27/24:
1. Mild to moderate acute interstitial and alveolar cardiogenic pulmonary edema.
2. Mild cardiomegaly.
3. Severe calcific atherosclerotic plaque in the thoracic aorta and coronary arteries.
4. 2.4 cm LEFT UPPER LOBE LUNG CANCER.
CXR 11/29/24AM: Cardiomegaly with increased pulmonary vascularity again seen suggesting acute interstitial alveolar cardiogenic pulmonary edema.
89-year-old female who presented with a chief complaint of 'abnormal labs' as outlined in the H&P done on admission. Hospital course per problem was:
Acute Kidney Injury on CKD3a: On admission the patient's creatinine was 2.8 from baseline of 1.4. This was likely due to contrast-induced nephropathy from prior cardiac CT. The patient received IV fluids. Her home metformin, losartan, furosemide
and triamterene-hydrochlorothiazide were held. Patient was seen in consultation by nephrology. Her creatinine worsened. The family did not want the patient to go on hemodialysis. The patient was transition to comfort care.
Acute hypoxic respiratory failure due to acute HFpEF: This was due to acute kidney injury as above. The patient was given IV Lasix without improvement. CXR above with cardiogenic pulmonary edema. The decision was made to transition the patient to
comfort care.
Discharge Plan
-
Patient Disposition: Hospice - Inpatient [facility]
Discharge Orders:
Discharge Patient (As Directed); Ordered 11/30/24
Ordered By: Ger Stroud
Discharge Date and Time
Print Language: GREEK
== END 2024-11-30 11:33 | disposition hospice, inpatient (51) | DRG 698 ==
LOC: 2 NORTH 23:42
PROVIDERS: Physician Assistant Medical; ADMITTING PHYSICIAN Internal Medicine; ATTENDING PHYSICIAN Internal Medicine; EMERGENCY PHYSICIAN Emergency Medicine; FAMILY PHYSICIAN Nurse Practitioner Family; OTHER PHYSICIAN Internal Medicine
DX: N14.11 Contrast-induced nephropathy (principal); I50.31 Acute diastolic (congestive) heart failure; J96.01 Acute respiratory failure with hypoxia; I13.0 Hypertensive heart and chronic kidney disease with heart failure and stage 1 through stage 4 chronic kidney disease, or unspecified chronic kidney disease; I48.21 Permanent atrial fibrillation; E87.1 Hypo-osmolality and hyponatremia; Q61.02 Congenital multiple renal cysts; N28.0 Ischemia and infarction of kidney; N17.8 Other acute kidney failure; T50.8X5A Adverse effect of diagnostic agents, initial encounter; Y92.9 Unspecified place or not applicable; Z51.5 Encounter for palliative care; E11.65 Type 2 diabetes mellitus with hyperglycemia; E78.00 Pure hypercholesterolemia, unspecified; N18.31 Chronic kidney disease, stage 3a; E11.610 Type 2 diabetes mellitus with diabetic neuropathic arthropathy; M19.90 Unspecified osteoarthritis, unspecified site; G62.9 Polyneuropathy, unspecified; I35.0 Nonrheumatic aortic (valve) stenosis; R41.89 Other symptoms and signs involving cognitive functions and awareness; R91.1 Solitary pulmonary nodule; R32 Unspecified urinary incontinence; N26.1 Atrophy of kidney (terminal); E66.9 Obesity, unspecified; R26.2 Difficulty in walking, not elsewhere classified; K21.9 Gastro-esophageal reflux disease without esophagitis; K44.9 Diaphragmatic hernia without obstruction or gangrene; M85.80 Other specified disorders of bone density and structure, unspecified site; G47.33 Obstructive sleep apnea (adult) (pediatric); J84.10 Pulmonary fibrosis, unspecified; E11.22 Type 2 diabetes mellitus with diabetic chronic kidney disease; R80.9 Proteinuria, unspecified; Z60.2 Problems related to living alone; Z66 Do not resuscitate; Z85.3 Personal history of malignant neoplasm of breast; Z87.891 Personal history of nicotine dependence; Z85.831 Personal history of malignant neoplasm of soft tissue; Z83.3 Family history of diabetes mellitus; Z82.49 Family history of ischemic heart disease and other diseases of the circulatory system; Z86.73 Personal history of transient ischemic attack (TIA), and cerebral infarction without residual deficits; Z88.2 Allergy status to sulfonamides; Z79.4 Long term (current) use of insulin; Z79.84 Long term (current) use of oral hypoglycemic drugs; Z79.01 Long term (current) use of anticoagulants; Z68.29 Body mass index [BMI] 29.0-29.9, adult; Z91.199 Patient's noncompliance with other medical treatment and regimen due to unspecified reason
CPT/HCPCS: 36415; 71045; 71046; 74174; 75572; 76770; 80048; 80053; 82962; 83036; 83880; 85025; 85027; 93005; 97163; 97166; 97530; 97535; 99285; Q9967

== ENCOUNTER 2024-11-30 11:34 | Inpatient (IN) | payer OTHER, SELFPAY ==
--- NOTE | 2024-11-30 11:56 | HPS.HSE ---
Family Physician
-
Family Physician: NOT KNOW UNKNOWN - PT DOES
Chief Complaint
-
inpt hospice, CHF
History of Present Illness
89 y/o F with PMHx:
Permanent Atrial Fibrillation
Severe Aortic Stenosis
Type 2 diabetes mellitus
Essential Hypertension
Hyperlipidemia
Pulmonary Nodule / Mass
Hx Left Temporal CVA
Hx Breast Cancer s/p Left Lumpectomy
Hx Sarcoma s/p Resection
and recent admission for:
Acute Kidney Injury on CKD3a
Acute hypoxic respiratory failure due to acute HFpEF
who is being discharged and readmitted to inpt hospice. Recent admission summary as follows:
Acute Kidney Injury on CKD3a: On admission the patient's creatinine was 2.8 from baseline of 1.4. This was likely due to contrast-induced nephropathy from prior cardiac CT. The patient received IV fluids. Her home metformin, losartan, furosemide
and triamterene-hydrochlorothiazide were held. Patient was seen in consultation by nephrology. Her creatinine worsened. The family did not want the patient to go on hemodialysis. The patient was transition to comfort care.
Acute hypoxic respiratory failure due to acute HFpEF: This was due to acute kidney injury as above. The patient was given IV Lasix without improvement. CXR above with cardiogenic pulmonary edema. The decision was made to transition the patient to
comfort care.
The pt is already on a morphine infusion
Medical History
Past Medical History
Past Medical History: Reports Other (as per HPI)
Past Surgical History: Reports Other (N/A)
Social History
Tobacco: Non-smoker
Alcohol: Other (rare)
Drug: None
Family History
Family History: Not pertinent
Allergies / Home Medications
Allergies reflects when Allergies were last updated in [facility].
Home Medications with original date entered in [facility]
Allergy/Medication List:
Allergies
Allergy/AdvReac Type Severity Reaction Status Date / Time
Sulfa (Sulfonamide Allergy Mild Hives Verified 11/27/24 20:46
Antibiotics)
Home Medications
losartan 25 mg tablet 25 mg PO DAILY 01/08/18
omeprazole 20 mg capsule,delayed release 20 mg PO DAILY 01/08/18
ascorbic acid (vitamin C) 250 mg tablet (Vitamin C) 250 mg PO DAILY 11/26/24
cholecalciferol (vitamin D3) 10 mcg (400 unit) tablet (Vitamin D3) 10 mcg PO DAILY 11/26/24
cyanocobalamin (vitamin B-12) 500 mcg tablet 500 mcg PO DAILY 11/26/24
diltiazem HCl 180 mg capsule,24 hr,extended release 180 mg PO QPM 11/26/24
ezetimibe 10 mg tablet 10 mg PO QPM 11/26/24
furosemide 20 mg tablet 20 mg PO DAILY 11/26/24
insulin glargine 100 unit/mL (3 mL) subcutaneous pen (Lantus Solostar U-100 Insulin) 16 unit SC DAILY@1500 11/26/24
linagliptin 5 mg tablet (Tradjenta) 5 mg PO DAILY 11/26/24
apixaban 5 mg tablet (Eliquis) 5 mg PO BID 11/27/24
atorvastatin 80 mg tablet 80 mg PO QPM 11/27/24
ferrous sulfate 325 mg (65 mg iron) tablet (FeroSul) 325 mg PO DAILY 11/27/24
metformin 500 mg tablet 500 mg PO BID 11/27/24
metoprolol succinate 50 mg tablet,extended release 24 hr 50 mg PO DAILY 11/27/24
omega-3 fatty acids-fish oil 360 mg-1,200 mg capsule,delayed release 1 cap DAILY 11/27/24
triamterene 37.5 mg-hydrochlorothiazide 25 mg tablet 1 tab PO DAILY 11/27/24
Review of Systems
-
Unable to obtain full review of systems at this time due to: Acuity
Physical Exam
Physical Exam
General: Other (.)
Impression/Plan
-
Gen: NAD, NCAT
CV: remains tachy, irreg/irreg, +S1/S2, 2/6 systolic murmur
Resp: CTAB anteriorly
Abd: +BS, soft, NT, ND
Skin: No rashes. No LE edema.
Neuro: CN 2-12 intact, non-focal.
Acute Kidney Injury on CKD3a
Acute hypoxic respiratory failure due to acute HFpEF
-inpt hospice admission
-comfort care meds: Morphine gtt, dulcolax [place] PRN, Ativan PO PRN (IV ativan shortage), IV glycopyrrolate PRN
[2024-11-30] MEDS: MORPHINE SULFATE 2 MG IV ×2 (12:11→18:18)
[2024-11-30 13:00] VITALS: BP 145/79
--- NOTE | 2024-11-30 13:17 | PTCARENOTE ---
Chart flipped to inpatient hospice. Morphine gtt infusing at step 2 per order through [facility], infusion started at 0948 per protocol. Berry placed for end of life care, draining yellow urine with sediment. Patient drowsy/lethargic, wakes to
verbal/tactile stimuli, able to communicate needs/pain to this RN. Bed bath provided this AM, B/L heels and sacrum foam applied, patient maintained on q2hr turns. Family at bedside.
--- NOTE | 2024-11-30 13:50 | HOSPNOTE ---
Patient admitted onto inpatient hospice for management of SOB, pain, and anxiety that is requiring titration of IV medication. Now on Step 2 morphine drip, FLACC 0 appears comfortable but does startle and becomes anxious at times. Coordinated care
with nurse Richey and requested dose of Ativan. Family at bedside and coping appropriately. Emotional support provided. Patient will be seen daily by hospice nurse.
[2024-11-30] MEDS: ATIVAN 0.5 MG PO ×2 (13:56→18:18)
[2024-11-30] MEDS: ROBINUL 0.2 MG IV (20:43)
[2024-11-30 21:02] VITALS: BP 102/58
[2024-12-01] MEDS: MORPHINE SULFATE 2 MG IV ×6 (01:32→12:18)
[2024-12-01] MEDS: ATIVAN 0.5 MG PO (03:33)
[2024-12-01 07:00] VITALS: BP 86/56
--- NOTE | 2024-12-01 10:43 | W.PN.HOSP.TC ---
Today's Communication/Plan
-
on morphine gtt-step 2
cont hospice measures
Assessment / Plan
Assessment / Plan
Gen: sleeping,
CV: +S1/S2, 2/6 systolic murmur
Resp: CTAB anteriorly
Abd: +BS, soft, NT, ND
Skin: No rashes. No LE edema.
Neuro: sedated
Acute Kidney Injury on CKD3a
Acute hypoxic respiratory failure due to acute HFpEF
-comfort care meds: Morphine gtt,
-dulcolax [place] PRN, Ativan PO PRN (IV ativan shortage), IV glycopyrrolate PRN
dvt ppx-none
Anticipated Discharge: > 48 hours
Subjective/Interval History
-
Date of Service: December 01, 2024
sedated
on morphine gtt
Objective Data
-
Vital Signs:
Vital Signs
Temp Pulse Resp BP Pulse Ox
100.3 F 130 16 86/56 92
12/01/24 07:00 12/01/24 07:00 12/01/24 07:00 12/01/24 07:00 12/01/24 07:00
I&O
11/30/24 12/01/24 12/02/24
06:59 06:59 06:59
Output Total 1050 / 1050
Balance -1050 / -1050
--- NOTE | 2024-12-01 10:52 | CM ---
CM following re: discharge planing.
Pt is under care of inpatient hospice [facility].
CM is available for emotional support.
--- NOTE | 2024-12-01 12:05 | PTCARENOTE ---
Patient with occasional grimace and jerky movement. Attempted to reposition patient, patient tense, holding arms to her . Morphine given at 1218 for comfort. Family at bedside and concerned about jerky/switching movements.
--- NOTE | 2024-12-01 15:09 | W.PN.DEATH ---
Pronouncement of
-
Called to see patient to pronounce.
No spontaneous heart tones or respirations noted.
Patient not responsive to verbal stimuli.
Patient is pronounced .
Time of : 15:00
Date of : 12/01/24
Cause of : Acute kidney injury chronic kidney disease stage IIIa
Acute diastolic heart failure exacerbation
Acute hypoxic respiratory failure
Family Notified: Yes (Expressed condolences to the daughter at bedside. )
--- NOTE | 2024-12-01 15:20 | W.DCSUMMARY ---
Discharge Summary
Discharge Data
Date of Admission: 11/30/24
Date of Discharge: 12/01/24
-
Pending Results: No
Hospital Course
89-year-old female past medical history of atrial fibrillation, aortic stenosis, CKD, hypertension, hyperlipidemia, pulmonary nodule/mass, breast cancer status post lumpectomy, sarcoma s/p resection who presented with abnormal labs. Patient was
found to have a severely elevated creatinine of 2.8 on admission compared to baseline of 1.4. He was seen multifactorial which is to the contrast-induced nephropathy from recent cardiac CT. Patient received IV fluids. Metformin losartan Lasix and
triamterene�hydrochlorothiazide was discontinued. Patient was seen in consultation by nephrology. Patient creatinine continued to worsen. Family did not want patient to undergo dialysis. Patient also had acute hypoxic respiratory failure due to
acute diastolic heart failure exacerbation. Patient received IV Lasix without much improvement. Chest x-ray with cardiogenic pulmonary edema. Family decided to transition patient to [facility]. Patient was transition to [facility] and started on hospice
protocol. Patient on morphine infusion on hospice protocol on 12/01/2024 at 3 PM. Condolences were expressed with patient daughter at bedside.
Discharge Plan
-
Patient Disposition:
Date/Time
Date/Time: 12/01/24 15:00
Discharge Date and Time
Print Language: CAMEROONIAN
--- NOTE | 2024-12-01 15:48 | PTCARENOTE ---
[employer] referral called at [phone]. Patient does not meet criteria due to age. [facility] Staff: Javy Tan.
== END 2024-12-01 15:00 | disposition expired | DRG 951 ==
LOC: 2 NORTH 11:34
PROVIDERS: ADMITTING PHYSICIAN Internal Medicine; ATTENDING PHYSICIAN Hospitalist
DX: Z51.5 Encounter for palliative care (principal); I50.33 Acute on chronic diastolic (congestive) heart failure; J96.01 Acute respiratory failure with hypoxia; I48.21 Permanent atrial fibrillation; I13.0 Hypertensive heart and chronic kidney disease with heart failure and stage 1 through stage 4 chronic kidney disease, or unspecified chronic kidney disease; N17.8 Other acute kidney failure; I35.0 Nonrheumatic aortic (valve) stenosis; N18.31 Chronic kidney disease, stage 3a; E11.22 Type 2 diabetes mellitus with diabetic chronic kidney disease; E78.5 Hyperlipidemia, unspecified; R91.1 Solitary pulmonary nodule; N14.11 Contrast-induced nephropathy; T50.8X5A Adverse effect of diagnostic agents, initial encounter; Z86.73 Personal history of transient ischemic attack (TIA), and cerebral infarction without residual deficits; Z85.3 Personal history of malignant neoplasm of breast; Z79.84 Long term (current) use of oral hypoglycemic drugs; Z88.2 Allergy status to sulfonamides; Z79.4 Long term (current) use of insulin; Z79.01 Long term (current) use of anticoagulants